=== PATIENT | female | born 1945 | race Caucasian/White ===

== ENCOUNTER 2018-01-03 11:30 | Emergency (ER) | payer MEDICARE ==
[2018-01-03] MEDS ORDERED: Fluconazole 100 MG TAB ONE (11:42)
[2018-01-03] MEDS ORDERED: Nitrofurantoin Monohyd/M-Cryst 100 MG CAP ONE (11:42)
== END 2018-01-03 12:00 | disposition home or self-care (01) ==
LOC: MADERS 11:30
DX: N30.91 Cystitis, unspecified with hematuria (principal); K21.9 Gastro-esophageal reflux disease without esophagitis; E03.9 Hypothyroidism, unspecified; E78.5 Hyperlipidemia, unspecified; J44.9 Chronic obstructive pulmonary disease, unspecified; F17.210 Nicotine dependence, cigarettes, uncomplicated; Z79.899 Other long term (current) drug therapy
CPT/HCPCS: 99283

== ENCOUNTER 2018-12-22 13:11 | Emergency (ER) | payer MEDICARE ==
[2018-12-22 13:47] LABS: Bilirubin Negative (Negative); Blood, Urine Small (Negative); Clarity Clear (Clear); Glucose, Urine (Dipstick) Negative (Negative); Leukocyte Small (Negative); Nitrite Negative (Negative); Protein, Urine (Dipstick) Trace mg/dL (Neg-Trace); Urobilinogen 0.2 mg/dL (0.2-1.0); pH, Urine 6.5 (5.0-9.0)
[2018-12-22 13:51] LABS: WBC/HPF 21-50 HPF (0-3)
[2018-12-22 13:52] LABS: Bacteria/HPF 1+ HPF (None Seen); Squamous Epithelial 0-3 HPF (0-3)
[2018-12-22 14:01] LABS: #Basophils 0.1 thou/uL (0.0-0.2); #Eosinphils 0.2 thou/uL (0.0-0.7); #Lymphocytes 2.2 thou/uL (1.20-3.40); #Monocytes 0.7 thou/uL (0.11-0.59); #Neutrophils 9.4 thou/uL (1.40-6.50); %Eosinophils 1.6 % (0.0-10.0); %Lymphocytes 17.6 % (21.0-51.0); %Monocytes 5.8 % (0.0-10.0); Hemoglobin 14.3 g/dL (12.0-16.0); Mean Corpuscular HGB CONC 30.6 g/dL (32.0-36.0); Mean Corpuscular Hemoglobin 25.2 pg (27.0-31.0); Mean Corpuscular Volume 82.6 fL (78.0-98.0); Mean Platelet Volume 5.9 fL (7.4-10.4); Platelet Count 405 thou/uL (130-400); RBC Distribution Width 14.5 % (11.5-14.5); Red Blood Cell (RBC) Count 5.65 mill/uL (4.20-5.40); White Blood Cell (WBC) Count 12.6 thou/uL (4.8-10.8)
[2018-12-22 14:03] LABS: ALT (SGPT) 18 U/L (8-55); AST (SGOT) 22 U/L (5-34); Albumin 4.1 g/dL (3.4-4.8); Alkaline Phosphatase 85 U/L (40-150); Anion Gap 14 mmol/L (10-20); BUN (Urea Nitrogen) 12 mg/dL (9.8-20.1); Bilirubin, Total 0.5 mg/dL (0.2-1.2); Calc. Creatinine Clearance 0 mL/min (70-130); Calcium 9.5 mg/dL (7.8-10.44); Carbon Dioxide 32 mmol/L (23-31); Chloride 99 mmol/L (98-107); Estimated GFR-MDRD 74; Globulin 3.5 g/dL (2.4-3.5); Glucose 107 mg/dL (83-110); Potassium 4.2 mmol/L (3.5-5.1); Protein, Total 7.6 g/dL (6.0-8.3); Sodium 141 mmol/L (136-145)
== END 2018-12-22 14:22 | disposition home or self-care (01) ==
LOC: MADERS 13:11
DX: N39.0 Urinary tract infection, site not specified (principal); K21.9 Gastro-esophageal reflux disease without esophagitis; E03.9 Hypothyroidism, unspecified; E78.5 Hyperlipidemia, unspecified; J44.9 Chronic obstructive pulmonary disease, unspecified; F17.210 Nicotine dependence, cigarettes, uncomplicated; Z79.899 Other long term (current) drug therapy; Z79.51 Long term (current) use of inhaled steroids
CPT/HCPCS: 36415; 80053; 81003; 81015; 83605; 85025; 87086; 99283

== ENCOUNTER 2019-08-04 10:30 | Emergency (ER) | payer MEDICARE ==
[2019-08-04 11:21] LABS: Bilirubin Negative (Negative); Blood, Urine Large (Negative); Clarity Slightly Cloudy (Clear); Glucose, Urine (Dipstick) Negative (Negative); Leukocyte Large (Negative); Nitrite Negative (Negative); Protein, Urine (Dipstick) Negative (Neg-Trace); Urobilinogen 0.2 mg/dL (Less than 2)
[2019-08-04 11:22] LABS: Bacteria/HPF 1+ HPF (None Seen); Squamous Epithelial 0-3 HPF (0-3); WBC/HPF 21-50 HPF (0-3)
== END 2019-08-04 11:37 | disposition home or self-care (01) ==
LOC: MADERS 10:30
DX: N39.0 Urinary tract infection, site not specified (principal); K21.9 Gastro-esophageal reflux disease without esophagitis; E03.9 Hypothyroidism, unspecified; E78.5 Hyperlipidemia, unspecified; J44.9 Chronic obstructive pulmonary disease, unspecified; F17.210 Nicotine dependence, cigarettes, uncomplicated; Z79.899 Other long term (current) drug therapy; Z79.51 Long term (current) use of inhaled steroids
CPT/HCPCS: 81003; 81015; 99283

== ENCOUNTER 2020-01-28 13:15 | Emergency (ER) | payer MEDICARE ==
[~2020-01-28 13:15] MED LIST: Iopamidol 370 76% 100 ML VIAL ONE
[2020-01-28] MEDS ORDERED: Sodium Chloride 0.9% 1,000 ML ONE (14:06)
[2020-01-28] MEDS ORDERED: Sodium Chloride 0.9% 100 ML ONE (14:22)
[2020-01-28] MEDS ORDERED: Pantoprazole 40 MG VIAL ONE (14:22)
[2020-01-28 14:32] LABS: #Basophils 0.1 thou/uL (0.0-0.2); #Eosinphils 0.2 thou/uL (0.0-0.7); #Lymphocytes 3.1 thou/uL (1.20-3.40); #Monocytes 0.9 thou/uL (0.11-0.59); #Neutrophils 5.6 thou/uL (1.40-6.50); %Basophils 1.4 % (0.0-1.0); %Lymphocytes 31.1 % (21.0-51.0); %Monocytes 8.9 % (0.0-10.0); %Neutrophils 56.6 % (42.0-75.0); Hemoglobin 14.5 g/dL (12.0-16.0); INR-International Normal Ratio 0.9; Mean Corpuscular HGB CONC 30.6 g/dL (32.0-36.0); Mean Corpuscular Hemoglobin 26.2 pg (27.0-31.0); Mean Corpuscular Volume 85.7 fL (78.0-98.0); Mean Platelet Volume 6.4 fL (7.4-10.4); Platelet Count 372 thou/uL (130-400); Prothrombin Time 12.4 sec (12.0-14.7); RBC Distribution Width 14.6 % (11.5-14.5); Red Blood Cell (RBC) Count 5.52 mill/uL (4.20-5.40); White Blood Cell (WBC) Count 9.9 thou/uL (4.8-10.8)
[2020-01-28 14:43] LABS: ALT (SGPT) 18 U/L (8-55); AST (SGOT) 21 U/L (5-34); Albumin 3.9 g/dL (3.4-4.8); Alkaline Phosphatase 82 U/L (40-110); Anion Gap 13 mmol/L (10-20); BUN (Urea Nitrogen) 8 mg/dL (9.8-20.1); Bilirubin, Total 0.4 mg/dL (0.2-1.2); Calc. Creatinine Clearance 0 mL/min (70-130); Calcium 8.6 mg/dL (7.8-10.44); Carbon Dioxide 30 mmol/L (23-31); Chloride 100 mmol/L (98-107); Estimated GFR-MDRD 78; Globulin 3.2 g/dL (2.4-3.5); Glucose 101 mg/dL (83-110); Lipase 14 U/L (8-78); Protein, Total 7.1 g/dL (6.0-8.3); Sodium 139 mmol/L (136-145)
--- NOTE | 2020-01-28 15:38 | CT ---
CT abdomen and pelvis with IV contrast HISTORY: Abdominal pain diffuse. FINDINGS: The lung bases are clear. Gallbladder is surgically absent. Solid organs are intact. Tiny l eft renal cortical cysts are noted. No hydronephrosis. Prominent calcification throughout the arterial structures. Scattered diverticula arise from the colon without adjacent inflammation. No evidence of bowel obstru ction. Appendix is unremarkable. Degenerative and postoperative changes of the lumbar spine. Small pocket of gas within the right S1 l ateral recess likely represents disc herniation from the L5-S1 level. IMPRESSION : No acute abnormalities are demonstrated to explain abdominal pain. Diverticulosis. No evidence of diverticulitis. Atherosclerosis. Right disc herniation at the lumbosacral junction. Possibly affecting the right S1 nerve root origin.
== END 2020-01-28 16:59 | disposition home or self-care (01) ==
LOC: MADERS 13:15
DX: K92.1 Melena (principal); K21.9 Gastro-esophageal reflux disease without esophagitis; E03.9 Hypothyroidism, unspecified; J44.9 Chronic obstructive pulmonary disease, unspecified; F17.210 Nicotine dependence, cigarettes, uncomplicated; E78.5 Hyperlipidemia, unspecified; Z79.899 Other long term (current) drug therapy
CPT/HCPCS: 74177; 80053; 82274; 83605; 83690; 85025; 85610; C9113; J3490; J7050; Q9967

== ENCOUNTER 2020-04-12 13:23 | Inpatient (IN) | payer MEDICARE, OTHER ==
[2020-04-12 13:55] LABS: Bilirubin Negative (Negative); Blood, Urine Large (Negative); Clarity Cloudy (Clear); Glucose, Urine (Dipstick) Negative (Negative); Ketone, Urine Negative (Negative); Leukocyte Small (Negative); Nitrite Negative (Negative); Protein, Urine (Dipstick) 100 mg/dL (Neg-Trace); Specific Gravity, Urine 1.015 (1.005-1.030); Urobilinogen 0.2 mg/dL (Less than 2)
[2020-04-12 14:02] LABS: RBC/HPF Greater than 50 HPF (0-3)
[2020-04-12 14:03] LABS: Squamous Epithelial 0-3 HPF (0-3)
[2020-04-12 14:04] LABS: Bacteria/HPF 1+ HPF (None Seen)
--- NOTE | 2020-04-12 14:12 | RAD ---
PORTABLE CHEST 1 VIEW: Date: 04/12/2020 Time: 1354 hours HISTORY: Sepsis. FINDINGS: The heart size is borderline. The aorta is tortuous. The lungs are well expanded without lobar consol idation, pneumothoraces, or pleural effusions. IMPRESSION: No acute process. POS: AH
[2020-04-12 14:21] LABS: #Basophils 0.1 thou/uL (0.0-0.2); #Eosinphils 0.1 thou/uL (0.0-0.7); #Neutrophils 12.2 thou/uL (1.40-6.50); %Basophils 0.9 % (0.0-1.0); %Eosinophils 0.8 % (0.0-10.0); %Lymphocytes 13.1 % (21.0-51.0); %Monocytes 6.2 % (0.0-10.0); Hemoglobin 15.1 g/dL (12.0-16.0); Mean Corpuscular HGB CONC 30.7 g/dL (32.0-36.0); Mean Corpuscular Hemoglobin 25.5 pg (27.0-31.0); Mean Platelet Volume 6.8 fL (7.4-10.4); Platelet Count 379 thou/uL (130-400); RBC Distribution Width 14.8 % (11.5-14.5); Red Blood Cell (RBC) Count 5.91 mill/uL (4.20-5.40); White Blood Cell (WBC) Count 15.5 thou/uL (4.8-10.8)
[2020-04-12 14:35] LABS: ALT (SGPT) 16 U/L (8-55); AST (SGOT) 21 U/L (5-34); Alkaline Phosphatase 79 U/L (40-110); Anion Gap 17 mmol/L (10-20); BUN (Urea Nitrogen) 9 mg/dL (9.8-20.1); Bilirubin, Total 0.6 mg/dL (0.2-1.2); Calc. Creatinine Clearance 0 mL/min (70-130); Calcium 9.2 mg/dL (7.8-10.44); Carbon Dioxide 30 mmol/L (23-31); Chloride 97 mmol/L (98-107); Estimated GFR-MDRD 72; Globulin 3.5 g/dL (2.4-3.5); Glucose 109 mg/dL (83-110); Potassium 3.9 mmol/L (3.5-5.1); Protein, Total 7.5 g/dL (6.0-8.3); Sodium 140 mmol/L (136-145)
[2020-04-12] MEDS ORDERED: Cefepime 2 GM VIAL ONE (15:03)
[2020-04-12] MEDS ORDERED: Sodium Chloride 0.9% 100 ML ONE (15:03)
[2020-04-12] MEDS ORDERED: Acetaminophen 325 MG TAB PO PRN (16:20)
[2020-04-12] MEDS ORDERED: Enoxaparin Sodium 30 MG/0.3 ML SYRINGE SC SCH (16:30)
[2020-04-12] MEDS ORDERED: Ventolin HFA Inhaler 60 PUFF INHALER INH PRN (17:27)
[2020-04-12 17:30] VITALS: BMI 31.1
[2020-04-12] MEDS: Ipratropium Bromide 2.5 ml Neb NEB SCH ×2 (19:58→23:50)
[2020-04-12] MEDS: Rosuvastatin 10 MG TAB PO SCH ×2 (20:18→20:36)
[2020-04-12] MEDS: Mometasone/Formoterol 200/5 60 PUFF INH SCH (20:20)
[2020-04-13] MEDS ORDERED: Cefepime 2 GM in Sodium Chloride 0.9% 100 ML IVPB SCH (03:00)
[2020-04-13] MEDS: Levothyroxine Sodium 75 MCG TAB PO SCH (05:38)
--- NOTE | 2020-04-13 06:40 | HP ---
CHIEF COMPLAINT: Severe low back pain and dysuria. The patient admitted to [facility] acute care on 04/12/2020. HISTORY OF PRESENT ILLNESS: The patient is a 74-year-old white female, who has a history of frequent urinary tract infections and COPD. She lives in the [place] area with her and sees a primary care physician, Dr. Mcknight in [place]. The patient said that since yesterday she has had severe low back pain, very frequent urination and burning. She said this is usually what occurs with the urinary tract infection. She is having a lot of low back pain with this, but no fever. It was just too far for her to try to drive to [place], so she presented to the emergency room here in [place]. The patient was initially evaluated by the emergency room physician who said upon initial presentation in the emergency room, she was tachycardic with a pulse of 115 and blood pressure 149/83 and was afebrile and O2 saturation 95%. On further evaluation, her CBC showed an H and H of 15.1 and 49.1 with a white blood cell count of 15,500 with 79% segs, 13% lymphocytes, and a platelet count of 379. Her sodium was 140, potassium 3.9, BUN was 9, creatinine 0.78, GFR 72, lactic acid 1.1. TSH 1.6. Her urinalysis showed a specific gravity of 1.015, nitrite was negative. RBCs were greater than 50, WBCs 11 to 20. Her chest x-ray showed the lungs well expanded and were clear. She has some over expanse of the lungs from her COPD. The patient had blood cultures drawn in the emergency room. She was started on Levaquin and cefepime for probable upper urinary tract infection. There was some worry about possible early sepsis development due to the tachycardia. She was in the emergency room and started on the antibiotics. Her pulse rate gradually came down into the 90s and her blood pressure remained normal and O2 saturation normal. Lactic acid was normal. It is felt like she should be watched in the hospital on IV antibiotics to ensure that she is not developing any type of sepsis. The patient was seen soon after her admission. She was sitting up on the side of the bed and was alert and was talkative, was able to review with me these symptoms as outlined above. She said she is feeling better now. She tends to have frequent urinary tract infection. She has never required hospitalizations in the past for this. PAST HISTORY: Frequent urinary tract infections, COPD. The patient is a chronic smoker, smokes a pack a day. The patient has had a JAMES and BSO. She is 0. She has had a hammertoe deformity repaired on her left fifth toe. She had colonoscopy in 2017 and had some benign polyps removed and due for repeat in 3 years. She has had low back surgery. GERD, hypothyroidism, and hyperlipidemia. PRESENT MEDICINES: 1. Spiriva 1 inhalation daily. 2. Albuterol inhaler 2 puffs every 4 hours as needed. 3. Levothyroxine daily. 4. Symbicort 160/4.5 two puffs b.i.d. 5. Omeprazole 40 mg daily. 6. Multivitamin daily. 7. Rosuvastatin 40 mg at bedtime. ALLERGIES: PENICILLIN CAUSES A RASH. RECORDS INDICATE THAT SHE ALSO HAS ALLERGIES TO CELEBREX, MORPHINE, AND CODEINE AND CODEINE DERIVATIVES. REVIEW OF SYSTEMS: CONSTITUTIONAL: The patient said she has not had any recent weight gain or loss. She has had no chills or fever. EYES, EARS, NOSE, AND THROAT: No complaints. PULMONARY: The patient said she gets a little winded with activities from her COPD, but this has been stable. She has a little cough that is nonproductive. CARDIOVASCULAR: No chest pain. GI: No nausea, vomiting, or change in bowel habits. : See present illness. MUSCULOSKELETAL: No complaint. NEUROLOGIC: No complaint. DERMATOLOGIC: No rash. ADLs: The patient is independent of all her ADLs. HABITS: The patient smokes a pack of cigarettes a day. Alcohol, none. SOCIAL HISTORY: The patient is . She lives in the [facility]. She is originally from [place], but has lived here for at least 25 years. PHYSICAL EXAMINATION: GENERAL: Shows a very pleasant 74-year-old white female, who is sitting up on the side of her bed. She is alert, talkative, oriented x3 and appears in no distress. VITAL SIGNS: Temperature is 98.4, respirations 20, pulse 93, blood pressure 161/67, O2 saturation 96% on room air. HEENT: Head, normocephalic and atraumatic. Eyes, pupils are equal, round, and reactive. Ears, right TM clear. Left TM has a small amount of cerumen obscuring the TM. Nose normal. Mouth and throat normal. NECK: Carotids are equal and strong. No bruits. Thyroid not enlarged. LUNGS: Clear. HEART: Regular rate. No murmurs. ABDOMEN: Soft with no organomegaly. No areas of tenderness. BACK: There is no point tenderness. There is no organomegaly. EXTREMITIES: No edema. NEUROLOGIC: Cranial nerves II through XII are grossly intact. There is no focal weakness. IMPRESSION: 1. Urinary tract infection. Suspect upper urinary tract involvement. a. Presenting with back pain, frequency, dysuria, and tachycardia, possible early sepsis. b. History of frequent urinary tract infections. 2. Chronic obstructive pulmonary disease. 3. Cigarette abuse, persistent. 4. Hypothyroidism. 5. Gastroesophageal reflux disease. PLAN: The patient has been admitted to the hospital. Blood cultures and urine cultures have been obtained. She will be continued on cefepime and Levaquin. We will continue her routine medication. We will recheck CBC, basic metabolic panel in the morning. We will monitor her vital signs. CODE STATUS: Full code. Job ID: [id number] [facility]
[2020-04-13] MEDS: Ipratropium Bromide 2.5 ml Neb NEB SCH ×3 (06:48→17:36)
[2020-04-13 07:52] LABS: Red Blood Cell (RBC) Count 5.51 mill/uL (4.20-5.40); White Blood Cell (WBC) Count 11.7 thou/uL (4.8-10.8)
[2020-04-13 07:53] LABS: #Basophils 0.1 thou/uL (0.0-0.2); #Eosinphils 0.1 thou/uL (0.0-0.7); #Lymphocytes 1.9 thou/uL (1.20-3.40); #Monocytes 0.8 thou/uL (0.11-0.59); #Neutrophils 8.9 thou/uL (1.40-6.50); %Basophils 0.7 % (0.0-1.0); %Eosinophils 1.2 % (0.0-10.0); %Lymphocytes 15.8 % (21.0-51.0); %Monocytes 7.1 % (0.0-10.0); %Neutrophils 75.3 % (42.0-75.0); Hemoglobin 14.1 g/dL (12.0-16.0); Mean Corpuscular HGB CONC 30.9 g/dL (32.0-36.0); Mean Corpuscular Hemoglobin 25.5 pg (27.0-31.0); Mean Corpuscular Volume 82.7 fL (78.0-98.0); Mean Platelet Volume 6.8 fL (7.4-10.4); Platelet Count 339 thou/uL (130-400); RBC Distribution Width 14.4 % (11.5-14.5)
[2020-04-13 08:36] LABS: Anion Gap 17 mmol/L (10-20); BUN (Urea Nitrogen) 10 mg/dL (9.8-20.1); Calc. Creatinine Clearance 83 mL/min (70-130); Calcium 8.8 mg/dL (7.8-10.44); Carbon Dioxide 29 mmol/L (23-31); Cardiac Risk 3.1 (Less than 4.5); Chloride 99 mmol/L (98-107); Cholesterol 143 mg/dl (< 200 Desired); Estimated GFR-MDRD 72; Glucose 118 mg/dL (83-110); HDL Cholesterol 46 mg/dL (>60 Neg Risk); LDL Cholesterol, Calculated 73 mg/dL; Potassium 3.7 mmol/L (3.5-5.1); Sodium 141 mmol/L (136-145); Triglycerides 122 mg/dL (Less than 150)
[2020-04-13] MEDS ORDERED: FLU VACC QS2020-21(65YR UP)/PF 240 MCG/0.7 ML SYRINGE IM ONE (09:00)
[2020-04-13] MEDS: Multivit, Therapeutic 1 TAB PO SCH (09:17)
[2020-04-13] MEDS: Enoxaparin Sodium 30 MG/0.3 ML SYRINGE SC SCH (09:18)
[2020-04-13] MEDS: Mometasone/Formoterol 200/5 60 PUFF INH SCH ×2 (09:19→20:39)
[2020-04-13 12:42] LABS: SARS-CoV-2 MS2 Positive; SARS-CoV-2 N Gene Negative; SARS-CoV-2 S Gene Negative; SARS-CoV-2 by NAA Not Detected (NotDetected); SARS-CoV-2 orf1ab Negative
[2020-04-13] MEDS ORDERED: Mag-Al Plus 1200 MG/1200 MG/120 MG/30 ML UDCUP PO PRN (13:09)
[2020-04-13] MEDS ORDERED: Albuterol 200 PUFF (6.7GM INHALER) INH PRN (13:50)
--- NOTE | 2020-04-13 14:26 | PRG ---
DATE OF SERVICE: 04/13/2020 SUBJECTIVE: The patient says she feels a lot better this morning. Low back pain has gone away. She is not having any of the dysuria. She said she was having some soreness in her right shoulder, which is chronic. She has a Gaymar pump providing moist heat and has taken Tylenol and this has helped. OBJECTIVE: GENERAL: The patient is sitting on the side of the bed. She is alert, talkative, looks very comfortable. VITAL SIGNS: Temperature of 97.6, pulse 91, respirations 20, O2 saturation 94% on room air, blood pressure 149/77. LUNGS: Clear. HEART: Regular rate. EXTREMITIES: No edema. LABORATORY DATA: H and H of 14.1 and 45.5, white blood cell count is down to 11,700 with 75% segs and 16% lymphocytes, platelet count is 338. Her chemistries for the day are pending. Culture reports pending. ASSESSMENT: 1. Urinary tract infection. Suspect upper urinary tract involvement. a. Presenting with back pain, frequency, dysuria, and tachycardia with possible early sepsis. b. Doing much better with resolution of back pain and dysuria, and no evidence of sepsis as of 04/13. 2. Chronic obstructive pulmonary disease. a. Stable as of 04/13. 3. Cigarette abuse, persistent. 4. Hypothyroidism. 5. Gastroesophageal reflux disease, controlled. PLAN: The patient looks better today. We will continue her IV antibiotics and await results of cultures. Her white blood cell count has dropped. Overall, she looks much improved. Job ID: [id number] [facility]
[2020-04-13] MEDS: Acetaminophen 325 MG TAB PO PRN ×2 (14:41→20:38)
[2020-04-13] MEDS: Rosuvastatin 10 MG TAB PO SCH (20:40)
[2020-04-14] MEDS: Levothyroxine Sodium 75 MCG TAB PO SCH (05:06)
[2020-04-14] MEDS: Ipratropium Bromide 2.5 ml Neb NEB SCH ×2 (05:06)
[2020-04-14 05:46] LABS: #Basophils 0.1 thou/uL (0.0-0.2); #Eosinphils 0.2 thou/uL (0.0-0.7); #Monocytes 0.7 thou/uL (0.11-0.59); #Neutrophils 5.4 thou/uL (1.40-6.50); %Basophils 1.3 % (0.0-1.0); %Eosinophils 2.2 % (0.0-10.0); %Lymphocytes 23.8 % (21.0-51.0); %Monocytes 8.6 % (0.0-10.0); %Neutrophils 64.1 % (42.0-75.0); Hemoglobin 14.5 g/dL (12.0-16.0); Mean Corpuscular HGB CONC 30.7 g/dL (32.0-36.0); Mean Corpuscular Hemoglobin 25.5 pg (27.0-31.0); Mean Corpuscular Volume 82.9 fL (78.0-98.0); Mean Platelet Volume 6.7 fL (7.4-10.4); Platelet Count 346 thou/uL (130-400); RBC Distribution Width 14.7 % (11.5-14.5); Red Blood Cell (RBC) Count 5.67 mill/uL (4.20-5.40); White Blood Cell (WBC) Count 8.3 thou/uL (4.8-10.8)
[2020-04-14] MEDS: Mometasone/Formoterol 200/5 60 PUFF INH SCH (08:32)
[2020-04-14] MEDS: Multivit, Therapeutic 1 TAB PO SCH (08:33)
[2020-04-14] MEDS: Enoxaparin Sodium 30 MG/0.3 ML SYRINGE SC SCH (08:33)
[2020-04-14 12:04] VITALS: BP 162/80; TEMP 99
== END 2020-04-14 12:15 | disposition home or self-care (01) | DRG 690 ==
LOC: MADERS 13:23 → MADMS 15:30 → UNDOADMIN 15:50
PROVIDERS: ADMIT Family Medicine; ATTEND Family Medicine
DX: N39.0 Urinary tract infection, site not specified (principal); Z20.828 Contact with and (suspected) exposure to other viral communicable diseases; J44.9 Chronic obstructive pulmonary disease, unspecified; E03.9 Hypothyroidism, unspecified; E78.5 Hyperlipidemia, unspecified; K21.9 Gastro-esophageal reflux disease without esophagitis; F17.210 Nicotine dependence, cigarettes, uncomplicated; G89.29 Other chronic pain; Z90.710 Acquired absence of both cervix and uterus; Z90.722 Acquired absence of ovaries, bilateral; Z88.0 Allergy status to penicillin; Z88.5 Allergy status to narcotic agent
CPT/HCPCS: 36415; 71045; 80048; 80053; 80061; 81003; 81015; 83605; 84443; 84484; 85025; 87040; 87077; 87086; 87186; 87635; 90471; 90662; 94640; 96365; G0008; J0692; J1650; J1956; J3490; U0003

== ENCOUNTER 2021-12-05 10:19 | Emergency (ER) | payer MEDICARE ==
[2021-12-05 10:51] LABS: Bilirubin Negative (Negative); Blood, Urine Small (Negative); Glucose, Urine (Dipstick) Negative (Negative); Ketone, Urine Negative (Negative); Leukocyte Small (Negative); Nitrite Negative (Negative); Protein, Urine (Dipstick) Negative (Neg-Trace); Urobilinogen 0.2 mg/dL (Less than 2)
[2021-12-05 10:54] LABS: Clarity Hazy (Clear)
[2021-12-05 10:57] LABS: Bacteria/HPF Rare-Few HPF (None Seen); Squamous Epithelial 0-3 HPF (0-3); WBC/HPF Greater Than 50 HPF (0-3)
[2021-12-05] MEDS ORDERED: Sulfameth/Trimethoprim DS 800-160mg TAB ONE (11:17)
== END 2021-12-05 11:22 | disposition home or self-care (01) ==
LOC: MADERS 10:19
DX: N39.0 Urinary tract infection, site not specified (principal); E03.9 Hypothyroidism, unspecified; E78.5 Hyperlipidemia, unspecified; J44.9 Chronic obstructive pulmonary disease, unspecified; Z87.891 Personal history of nicotine dependence
CPT/HCPCS: 81003; 81015; 99283

== ENCOUNTER 2023-07-18 09:41 | Emergency (ER) | payer MEDICARE ==
[2023-07-18] MEDS ORDERED: LevoFLOXacin 750 mg/D5W 150 ml Premix Bag ONE (10:05)
[2023-07-18 10:09] LABS: #Basophils 0.1 thou/uL (0.0-0.2); #Lymphocytes 2.3 thou/uL (1.20-3.40); #Monocytes 0.8 thou/uL (0.11-0.59); #Neutrophils 7.7 thou/uL (1.40-6.50); %Basophils 0.9 % (0.0-1.0); %Eosinophils 8.1 % (0.0-10.0); %Lymphocytes 19.3 % (21.0-51.0); %Neutrophils 64.7 % (42.0-75.0); Hematocrit 27.2 % (36.0-47.0); Hemoglobin 8.7 g/dL (12.0-16.0); Mean Corpuscular HGB CONC 32.1 g/dL (32.0-36.0); Mean Corpuscular Hemoglobin 26.4 pg (27.0-31.0); Mean Corpuscular Volume 82.3 fl (78.0-98.0); Mean Platelet Volume 6.2 fL (7.4-10.4); Platelet Count 466 10x3/uL (130-400); RBC Distribution Width 14.3 % (11.5-14.5)
[2023-07-18 10:25] LABS: Bicarbonate (HCO3v) 33.5 mmol/L (22.0-28.0); CO2 Tension (PvCO2) 44.5 mmHg (42.0-51.0); Calcium, Ionized 0.88 mmol/L (1.15-1.33); Chloride 93 mmol/L (98-107); Potassium 3.1 mmol/L (3.5-5.1); Sodium 138 mmol/L (138-145); T. Carbon Dioxide 34.8 mmol/L (22.0-28.0); vO2 Saturation-calc 98.6 % (60.0-85.0)
[2023-07-18 10:28] LABS: ALT (SGPT) 17 U/L (8-55); AST (SGOT) 20 U/L (5-34); Albumin 3.5 g/dL (3.4-4.8); Alkaline Phosphatase 69 U/L (40-110); Anion Gap 17 mmol/L (10-20); BUN (Urea Nitrogen) 8 mg/dL (9.8-20.1); Bilirubin, Total 0.3 mg/dL (0.2-1.2); Calc. Creatinine Clearance 0 mL/min (70-130); Carbon Dioxide 35 mmol/L (23-31); Chloride 91 mmol/L (98-107); Estimated GFR 81; Glucose 187 mg/dL (83-110); Potassium 3.2 mmol/L (3.5-5.1); Protein, Total 7.5 g/dL (5.8-8.1); Sodium 140 mmol/L (136-145)
[2023-07-18 10:29] LABS: Magnesium Less than 0.6 mg/dL (1.6-2.6); Troponin I Less than 0.010 ng/mL (< 0.028)
[2023-07-18 10:43] LABS: SARS-CoV-2 NAA Rapid Test Not Detected (NotDetected)
[2023-07-18] MEDS ORDERED: Magnesium 2 GM/50 ML BAG (IN WATER) ONE (10:48)
[2023-07-18] MEDS ORDERED: Ipratropium/Albuterol 3 ML NEB ONE (12:53)
[2023-07-18] MEDS ORDERED: Albuterol 2.5 MG (0.5 mL) NEB ONE (14:23)
[2023-07-18] MEDS ORDERED: Albuterol 2.5 MG (3 mL) NEB ONE (14:23)
[2023-07-18] MEDS ORDERED: Mag-Al Plus 1200/1200/120 MG (30 mL) UDCUP ONE (17:01)
== END 2023-07-18 18:04 | disposition short-term general hospital (02) ==
LOC: MADERS 09:41
DX: J44.1 Chronic obstructive pulmonary disease with (acute) exacerbation (principal); E83.42 Hypomagnesemia; J96.20 Acute and chronic respiratory failure, unspecified whether with hypoxia or hypercapnia; K21.9 Gastro-esophageal reflux disease without esophagitis; E03.9 Hypothyroidism, unspecified; E78.5 Hyperlipidemia, unspecified; Z87.891 Personal history of nicotine dependence; Z79.899 Other long term (current) drug therapy
CPT/HCPCS: 0241U; 71045; 80053; 82330; 82435; 82803; 83605; 83735; 83880; 84132; 84295; 84484; 85014; 85025; 87040; 93005; 94760; 36415; 96365; 96375; J1956; J3475; J7611; J7620